=== PATIENT | female | born 1960 | race Caucasian/White ===

== ENCOUNTER 2020-01-15 15:57 | Inpatient (IN) | payer MEDICAID ==
[~2020-01-15] VITALS: Ht 167.6 cm; Wt 114.8 kg
[~2020-01-15 15:57] MED LIST: AUGMENTIN 500-1 EACH PO; BACLOFEN; CELEXA40 MG PO; CLONAZEPAM PO; DESYREL150 MG PO; FLEXERIL PO; GABAPENTIN PO; HYDROCODON-ACE1 EAC1 PO; IBUPROFEN 200200 M1 PO; LIDODERM 5%1 PATCH TOP; LIPITOR; MOBIC; NORCO 5-325 TA1 EACH PO; NORVASC10 MG PO; ROBAXIN 750 MG750 M1 PO; ULTRACET TABLE1 EACH PO
[2020-01-15 16:03] VITALS: BP 125/83
[2020-01-15 17:27] LABS: ABSOLUTE BASOPHILS 0.2 thou/uL (0.0-0.2); ABSOLUTE EOSINOPHILS 0.1 thou/uL (0.0-0.7); ABSOLUTE LYMPHOCYTES 3.1 thou/uL (0.8-5.3); ABSOLUTE MONOCYTES 0.7 thou/uL (0.0-1.2); ABSOLUTE NEUTROPHILS 9.9 thou/uL (1.6-8.1); BASOPHILS 1.3 %; EOSINOPHILS 0.7 %; HEMOGLOBIN 13.8 gm/dL (12.0-15.0); LYMPHOCYTES 22.1 %; MCHC 32.8 g/dL (28.0-37.0); MCV 85.3 fL (80.0-100.0); MONOCYTES 5.3 %; MPV 7.6 fl. (7.2-11.1); NUCLEATED RBCS 0 /100WBC; PLATELET COUNT* 273 thou/uL (150-400); POLYS 70.6 %; RBC 4.93 mil/uL (4.20-5.00); RDW-CV 14.2 % (10.5-14.5); WBC 14.1 thou/uL (4.0-11.0)
[2020-01-15 17:28] LABS: INFLUENZA A ANTIGEN Negative (Negative); INFLUENZA B ANTIGEN Negative (Negative)
[2020-01-15 17:36] LABS: CALCIUM 8.8 mg/dL (8.5-10.1); CREATININE 0.8 mg/dL (0.6-1.3); POTASSIUM 4.6 mmol/L (3.5-5.1)
[2020-01-15 17:40] LABS: ALBUMIN 3.4 g/dL (3.4-5.0); TOTAL BILIRUBIN 0.2 mg/dL (<0.1-1.0); TOTAL PROTEIN 8.3 g/dL (6.4-8.2)
[2020-01-15] MEDS ORDERED: PHENERGAN 25 MG25 M1 PO (17:52)
--- NOTE | 2020-01-15 19:01 | NUR ---
REPORT GIVEN TO ELICEO FERGUSON WHO IS TO ASSUME PT CARE AT THIS TIME.
[2020-01-15 20:18] LABS: BE -0.1 mmol/L (-2 to +3)
[2020-01-15 20:22] LABS: pH 7.141 (7.340-7.450)
[2020-01-15 20:26] LABS: ACETAMINOPHEN < 2 ug/mL (10-30); ALCOHOL < 10 mg/dL (<10); SALICYLATE < 2.8 mg/dL (2.8-20.0)
[2020-01-15 21:35] LABS: URINE BILIRUBIN NEGATIVE (Negative); URINE BLOOD NEGATIVE (Negative); URINE CLARITY CLEAR; URINE COLOR YELLOW; URINE GLUCOSE-RANDOM NEGATIVE (Negative); URINE KETONES NEGATIVE (Negative); URINE LEUKOCYTES-REFLEX NEGATIVE (Negative); URINE NITRITE-REFLEX NEGATIVE (Negative); URINE PROTEIN TRACE (Negative); URINE SPECIFIC GRAVITY >= 1.030 (1.005-1.030); URINE UROBILINOGEN 0.2 E.U./dl (0.2-1.0)
[2020-01-15 22:30] VITALS: BP 142/66
--- NOTE | 2020-01-15 22:30 | NUR ---
RECEIVED REPORT FROM ER AND ADMITTED TO ROOM 200. PT LETHARGIC BUT ABLE TO WAKE ENOUGH TO MOVE ONTO THE BED. BIPAP MACHINE ON. TELEMETRY APPLIED SHOWING SR. PT TOO LETHARGIC TO ANSWER ADMISSION QUESTIONS OR COOPERATE. WILL CONT TO MONITOR AND ASSIST NEEDED.
[2020-01-15 22:37] VITALS: BP 175/78
[2020-01-16 02:24] LABS: AMP/METHAMP POSITIVE (Negative); BARBITURATES Negative (Negative); BENZODIAZEPINES POSITIVE (Negative); COCAINE Negative (Negative); METHADONE Negative (Negative); OPIATES Negative (Negative); PCP Negative (Negative); THC Negative (Negative)
--- NOTE | 2020-01-16 02:27 | NUR ---
PT MORE AWAKE AND AGITATED. FREQ REMOVING CPAP MASK DEMANDING A DRINK. REFUSING AM LAB TO BE DRAWN UNTIL SHE GETS A DRINK. ATTEMPTED TO EDUCATE REASON FOR BIPAP BUT BECOME COMBATIVE.
[2020-01-16 03:56] VITALS: BP 134/66
--- NOTE | 2020-01-16 06:37 | NUR ---
SLEEPING BUT WAKING UP FREQ YELLING OUT, VERY AGITATED. WANTING BIPAP OFF AND GO HOME. LEFT MESSAGES WITH DAUGHTER TO EXPLAIN CONDITION BUT NO CALL BACK. ALLOWED PT TO HAVE SIPS OF WATER OCC. DIAPHORETIC. TELEMETRY CONT TO SHOW SR. NOTIFIED AND ORDER RECEIVED TO ASSIST WITH AGITIATION. CHARLES PATENT. HOURLY ROUNDING OBSERVED.
--- NOTE | 2020-01-16 07:10 | NUR ---
CHANGE OF SHIFT, BEDSIDE REPORT GIVEN PATIENT SEEN AT BEDSIDE, IN BED RESTING ASSUMED PATIENT CARE
[2020-01-16 08:00] VITALS: BP 134/61
[2020-01-16 09:35] LABS: BE 1.5 mmol/L (-2 to +3)
[2020-01-16 09:40] LABS: pH 7.292 (7.340-7.450)
[2020-01-16 09:41] LABS: PCO2 62.7 mmHg (35.0-45.0)
--- NOTE | 2020-01-16 10:32 | EKG ---
[place] [address] ELECTROCARDIOGRAM REPORT Name: SUSAN BRIONES Room: [address] ADM IN .R.#: [id number] Admission: 01/15/20 Attend Phys: Jeb Lopez Discharge: Date of : 62 Date of Service: 01/15/202026 Report #: [id number] THIS REPORT FOR: //name// [facility] ED Test Date: 2020-01-15 Test Time: 20:27:27 Pat Name: SUSAN BRIONES Department: Room: [facility] [place] Gender: F Director Of Revenue: : 1960 Requested By: Carrie De Souza Order Number: [id number] MD: Stephan Navarrete Measurements Intervals [place] Rate: 92 P: 72 [place]: 138 QRS: 63 QRSD: 90 T: 27 QT: 339 QTc: 420 Interpretive Statements Sinus rhythm Low voltage, precordial leads No previous ECG available for comparison Electronically Signed On 01-16-2020 10:31:21 MANUFACTURING PLANNER by Stephan Navarrete [email or web address] <ELECTRONICALLY SIGNED> By: Stephan Navarrete MD, [facility] 01/16/20 1031 26 26 Stephan Navarrete MD, FAC /EPI
[2020-01-16 12:00] VITALS: BP 140/35
--- NOTE | 2020-01-16 15:09 | NUR ---
Pt sound asleep on 6L o2, CM to f/u later
[2020-01-16 16:00] VITALS: BP 135/72
[2020-01-16 20:00] VITALS: BP 135/55
[2020-01-17 00:01] VITALS: BP 146/63
--- NOTE | 2020-01-17 03:46 | NUR ---
ASSUMED CARE OF PATIENT AT 1900. VSS, AFEBRILE. REFUSES BIPAP MOST OF SHIFT, DID TOLERATE FOR 2.5 HOURS. CALM AND COOPERATIVE WITH THIS RN. 2 IV'S PLACED. CRITICAL LABS RESULTED, DR DEJESUS IN HOUSE, NOTIFIED. ORDERS RECIEVED. RESTING AT THIS TIME.
[2020-01-17 04:34] LABS: ABSOLUTE LYMPHOCYTES 1.9 thou/uL (0.8-5.3); ABSOLUTE MONOCYTES 0.8 thou/uL (0.0-1.2); ABSOLUTE NEUTROPHILS 11.5 thou/uL (1.6-8.1); BASOPHILS 0.3 %; HEMATOCRIT 38.4 % (37.0-47.0); HEMOGLOBIN 12.5 gm/dL (12.0-15.0); LYMPHOCYTES 13.2 %; MCH 27.9 pg (26.0-34.0); MCHC 32.6 g/dL (28.0-37.0); MCV 85.6 fL (80.0-100.0); MONOCYTES 5.6 %; MPV 8.1 fl. (7.2-11.1); NUCLEATED RBCS 0 /100WBC; PLATELET COUNT* 304 thou/uL (150-400); POLYS 80.9 %; RBC 4.49 mil/uL (4.20-5.00); WBC 14.3 thou/uL (4.0-11.0)
[2020-01-17 04:36] VITALS: BP 147/74
[2020-01-17 04:53] LABS: CALCIUM 8.5 mg/dL (8.5-10.1); CREATININE 0.8 mg/dL (0.6-1.3); POTASSIUM 4.4 mmol/L (3.5-5.1)
[2020-01-17 05:43] LABS: BE 6.7 mmol/L (-2 to +3); PO2 92.7 mmHg (75.0-100.0); pH 7.315 (7.340-7.450)
[2020-01-17 05:46] LABS: PCO2 70.8 mmHg (35.0-45.0)
[2020-01-17 08:45] VITALS: BP 142/57
--- NOTE | 2020-01-17 09:38 | NUR ---
Out of room at CXR, will f/u later
--- NOTE | 2020-01-17 10:00 | NUR ---
ASSUMED CARE AFTER REPORT APPROX 0730. SLEEPING ON FIRST ENCOUNTER BUT ANSWERS TO NAME. UPON ASSESSMENT, OX4, FLAT AFFECT, ABLE TO EXPRESS NEEDS. ASSESSMENT COMPLETE, DOCUMENTED. VS OBTAINED, DOCUMENTED. PHILOSOPHY PROFESSOR IN PLACE, SR. DR. PACHECO TO BEDSIDE FOR ASSESSMENT OF PATIENT. DISCUSSED THE USE OF BIPAP. PATIENT STATES "IT MAKES ME FEEL SO UNCOMFORTABLE." EDUCATION GIVEN R/T BENEFITS OF BIPAP. PATIENT AGREES TO WEAR IT ONE HOUR ON AND ONE HOUR OFF. PATIENT STATES " LONG THEY DON'T FORCE ME TO WEAR IT." CALL LIGHT IN REACH. HOURLY ROUNDING FOR SAFETY/PATIENT NEEDS.
--- NOTE | 2020-01-17 11:40 | NUR ---
Pt is A&O. Resides at home with dtr, dtr in room at bedside. Pt is independent. Uses a walker for mobility. Pt wears home o2 continuous at 3L, provided through [employer]. No hx of HH or SNF. Goal is home at dc. Following.
[2020-01-17 12:00] VITALS: BP 159/78
[2020-01-17 16:00] VITALS: BP 145/67
--- NOTE | 2020-01-17 19:02 | NUR ---
PATIENT RESTING WITH HFC 6L, REFUSED TO RESUME BIPAP USE AT AGREED UPON TIME. HAS USED BIPAP 5 OUT OF 12 HOURS. TAKES IT OFF ON OWN AND REAPPLIES O2 AT WILL. LONGEST PERIOD OF USE TODAY WAS APPROX 2.5 HOURS. PATIENT STATES "I JUST FEEL SO TIRED." SHE ATE APPROX 10% OF EACH MEAL. PATIENT STATES "I GUESS I DON'T HAVE ANY APPETITE." GOOD URINE OUTPUT, NO BM TODAY.
[2020-01-17 19:40] VITALS: BP 147/68
[2020-01-18] VITALS: BP 140/53
[2020-01-18 04:00] VITALS: BP 154/76
--- NOTE | 2020-01-18 05:00 | NUR ---
PATIENT PARTIALLY PROGRESSING TOWARDS GOALS: PATIENT HAS WORN BIPAP ON AND OFF THIS SHIFT. PATIENT ENCOURAGED TO WEAR MUCH TOLERATED. PATIENT DENIES PAIN AND DISCOMFORT. CALL LIGHT WITHIN REACH
[2020-01-18 05:05] LABS: ABSOLUTE LYMPHOCYTES 1.8 thou/uL (0.8-5.3); ABSOLUTE MONOCYTES 0.6 thou/uL (0.0-1.2); ABSOLUTE NEUTROPHILS 10.7 thou/uL (1.6-8.1); BASOPHILS 0.3 %; HEMATOCRIT 38.6 % (37.0-47.0); HEMOGLOBIN 12.6 gm/dL (12.0-15.0); LYMPHOCYTES 13.7 %; MCH 27.8 pg (26.0-34.0); MCHC 32.6 g/dL (28.0-37.0); MCV 85.3 fL (80.0-100.0); MONOCYTES 4.5 %; MPV 8.1 fl. (7.2-11.1); NUCLEATED RBCS 0 /100WBC; PLATELET COUNT* 267 thou/uL (150-400); POLYS 81.5 %; RBC 4.52 mil/uL (4.20-5.00); RDW-CV 14.3 % (10.5-14.5); WBC 13.1 thou/uL (4.0-11.0)
[2020-01-18 05:09] LABS: ALBUMIN 2.9 g/dL (3.4-5.0); CALCIUM 8.4 mg/dL (8.5-10.1); CREATININE 0.9 mg/dL (0.6-1.3); POTASSIUM 4.4 mmol/L (3.5-5.1); TOTAL BILIRUBIN 0.2 mg/dL (<0.1-1.0); TOTAL PROTEIN 7.2 g/dL (6.4-8.2)
[2020-01-18 05:47] LABS: BE 4.6 mmol/L (-2 to +3); PO2 82.6 mmHg (75.0-100.0); pH 7.344 (7.340-7.450)
[2020-01-18 05:51] LABS: PCO2 59.7 mmHg (35.0-45.0)
--- NOTE | 2020-01-18 07:34 | CON ---
[address] [address] CONSULTATION Name: SUSAN BRIONES Room: [address] ADM IN M.R.#: [id number] Admission: 01/15/20 Attend Phys: Roberta Maddox Discharge: Date of : 62 Report #: [id number] THIS REPORT FOR: //name// cc: Deshawn Carter Ahmad W. DO ~ THIS REPORT FOR: //name// CC: Deshawn Lopez DATE OF SERVICE: 01/17/2020 INFECTIOUS DISEASE CONSULTATION ATTENDING PHYSICIAN: Jeb Lopez DO. REASON FOR EVALUATION: Gram-positive cocci, positive blood cultures in the setting of respiratory failure with pneumonitis. HISTORY OF PRESENT ILLNESS: Chart reviewed, patient examined. This is a 59-year-old with underlying COPD, was admitted through the Emergency Room on 01/14 with roughly 3-day history of headache, developed some nausea, emesis as per the evaluation, was noted to be hypoxemic with acidemia and marked hypercarbia. Influenza antigen was negative. Initial chest x-ray was fairly unrevealing; however, this has progressed to some degree. Lactic acid was 1.6. ProBNP was 573. She had a difficult time with hypercarbia, is now intermittently on BiPAP, had developed really no fevers. Blood cultures at the time of admission, now 1 out of 2 gram-positive cocci, has been empirically placed on antimicrobials including vancomycin as well as piperacillin and tazobactam. She notes she has really not improved since admission. She is generally lucid, moderate distress. Denies significant gastrointestinal complaints at this point. ALLERGIES: LISTED TO FENTANYL AND LATEX. MEDICATIONS: Include acetaminophen, vancomycin, trazodone, ipratropium, albuterol inhaler, hydrocodone, cyclobenzaprine, citalopram, methylprednisolone, lorazepam as needed, Zosyn, ondansetron as needed. PAST MEDICAL HISTORY: Degenerative disk disease, osteoporosis, COPD, 2 ectopic tubal pregnancies, back and neck pain. SOCIAL HISTORY: Smokes cigarettes. No ethanol. Positive urine drug screen for amphetamine, methamphetamine and benzodiazepines. FAMILY HISTORY: [place] [address] CONSULTATION Name: SUSAN BRIONES Room: [address] IN [facility].#: [id number] Admission: 01/15/20 Attend Phys: Roberta Maddox Discharge: Date of : 62 Report #: [id number] REVIEW OF SYSTEMS: As above. PHYSICAL EXAMINATION: GENERAL: She appears ill, not overtly toxic. She is in moderate respiratory distress. VITAL SIGNS: Temperature 97.7, pulse 82, respirations 22, blood pressure 159/78. SKIN: Warm, dry, no rashes. HEENT: Normocephalic. Extraocular muscles intact. NECK: Supple. LUNGS: Scattered coarse breath sounds. HEART: Regular. I do not appreciate murmur. ABDOMEN: Mildly distended, soft, nontender. There are no peritoneal signs. GENITOURINARY: Deferred. RECTAL: Deferred. LABORATORY DATA: Initial CBC: White count of 14.1, H 13.8 and 42.0, platelets 273. Influenza antigen was negative. Electrolytes: Sodium 138, potassium 4.6, chloride 100, bicarbonate is 34, anion gap of 4, BUN and creatinine 11 and 0.8, albumin of 3.4, total protein 8.3. LFTs unremarkable. ABGs: Initially, pH 7.141, pCO2 of 96.0, pO2 of 74.0 on 4 liters. Chest x-ray was otherwise unremarkable initially; repeat showed changes, bilateral interstitial markings, question of vascular congestion and pulmonary edema. Blood cultures, 1 out of 2 with gram-positive cocci. ASSESSMENT: Pneumonitis, complicated by respiratory failure, positive blood culture as well. It is difficult to ascertain if indeed this represents a true positive. Certainly, we cannot exclude a Staph or strep etiology. We will continue current antimicrobial approach with empiric combination of vancomycin, piperacillin and tazobactam. She is somewhat tenuous. We will have to monitor expectantly. We are going to wean off support as allowed. <ELECTRONICALLY SIGNED> By: Manav Meadows MD 01/18/20 0734 1542 [id number] Meadows MD /nt
[2020-01-18 08:00] VITALS: BP 128/64
--- NOTE | 2020-01-18 11:03 | NUR ---
ASSUMED CARE OF PT AT 0730. RESTING LYING IN BED. PT WORE BIPAP FOR AN HOUR THIS AM AND ON 6L NC DURING BREAKFAST. PT ENCOURAGED TO USE BIPAP THROUGHOUT SHIFT. A&0X4, COMPLAINS OF PAIN TO BACK. TREATED WITH PRN TYLENOL AND FLEXERIL WITH PARTIAL RELIEF. TRACING SR ON THE INDUSTRIAL MAINTENANCE TECHNICIAN. 02 SAT 96% ON BIPAP. CHARLES TO DEPENDENT DRAINAGE. PT UP WITH MAX ASSIST- BEDREST MAINTAINED. IVF. PULM AND ID CONSULT IN PLACE. PT GOAL FOR TODAY IS COMPLETE ECHO, PAIN MGMT AND COMPLIANCE WITH BIPAP. AM ASSESSMENT CHARTED. MEDICATIONS PER JAN. PT REPOSITIONS SELF WITH REMINDERS. HOURLY ROUNDING OBSERVED. BED IN LOW POSITION. CALL LIGHT WITHIN REACH. WILL CONTINUE PLAN OF CARE.
[2020-01-18 12:00] VITALS: BP 127/53
--- NOTE | 2020-01-18 14:19 | 2DMMODE ---
[place] [address] 2 D/M-MODE ECHOCARDIOGRAM Name: SUSAN BRIONES Room: [address] IN [facility].#: [id number] Admission: 01/15/20 Attend Phys: Jeb Lopez Discharge: Date of : 62 Date of Service: 01/18/20 1406 Report #: [id number] THIS REPORT FOR: cc: Deshawn Carter Ahmad W. DO Blick,Stephan Shaw MD [facility] ~ APPROVED REPORT Study performed: 01/18/2020 09:42:27 EXAM: Comprehensive 2D, Doppler, and color-flow Echocardiogram Patient Location: In-Patient Room #: 200 Status: routine BSA: 2.31 HR: 71 bpm BP: 128/64 mmHg Rhythm: NSR Other Information Study Quality: Good Indications Sepsis Dyspnea 2D Dimensions IVSd: 11.90 (7-11mm) LVOT Diam: 20.24 (18-24mm) LVDd: 47.27 mm PWd: 10.61 (7-11mm) LVDs: 33.08 (25-40mm) Aortic Root: 29.51 mm Volumes Left Atrial Volume (Systole) LA ESV Index: 26.40 mL/m2 Aortic Valve AoV Peak Yann.: 2.05 m/s AO Peak Gr.: 16.86 mmHg LVOT Max P.86 mmHg AO Mean Gr.: 8.18 mmHg LVOT Mean P.15 mmHg LVOT Max V: 1.65 m/s AO V2 VTI: 37.25 cm LVOT Mean V: 1.03 m/s JHON (VTI): 2.87 cm2 LVOT V1 VTI: 33.16 [place] [address] 2 D/M-MODE ECHOCARDIOGRAM Name: SUSAN BRIONES Room: [address] IN M.R.#: [id number] Admission: 01/15/20 Attend Phys: Jeb Lopez Discharge: Date of : 62 Date of Service: 01/18/20 1406 Report #: [id number] Mitral Valve E/A Ratio: 1.12 MV Decel. Time: 258.99 ms MV E Max Yann.: 1.13 m/s MV PHT: 75.11 ms MVA (PHT): 2.93 cm2 TDI E/Lateral E': 9.42 E/Medial E': 8.07 Medial E' Yann.: 0.14 m/s Lateral E' Yann.: 0.12 m/s Pulmonary Valve PV Peak Aynn.: 1.37 m/s PV Peak Gr.: 7.50 mmHg Left Ventricle The left ventricle is normal size. There is normal LV segmental wall motion. There is normal left ventricular wall thickness. Left ventricular systolic function is normal. The left ventricular ejection fraction is within the normal range. LVEF is 55-60%. The left ventricular diastolic function is normal. Right Ventricle The right ventricle is normal size. The right ventricular systolic function is normal. Atria The left atrium size is normal. The right atrium size is normal. Aortic Valve Mild aortic valve sclerosis. No aortic regurgitation is present. There is no aortic valvular stenosis. Mitral Valve The mitral valve is normal in structure. Trace mitral regurgitation. No evidence of mitral valve stenosis. Tricuspid Valve The tricuspid valve is normal in structure. Unable to assess PA pressure. Trace tricuspid regurgitation. Pulmonic Valve The pulmonary valve is normal in structure. There is no pulmonic [place] [address] 2 D/M-MODE ECHOCARDIOGRAM Name: SUSAN BRIONES Room: [address]#: [id number] Admission: 01/15/20 Attend Phys: Jeb Lopez Discharge: Date of : 62 Date of Service: 01/18/20 1406 Report #: [id number] Great Vessels The aortic root is normal in size. IVC is normal in size and collapses >50% with inspiration. Pericardium There is no pericardial effusion. <Conclusion> LVEF is 55-60%. Mild aortic valve sclerosis. <ELECTRONICALLY SIGNED> By: Stephan Navarrete MD, [facility] 01/18/20 1406 140 140 Stephan Navarrete MD, [facility] /INF
[2020-01-18 16:00] VITALS: BP 172/81
--- NOTE | 2020-01-18 17:01 | NUR ---
NO ACUTE CHANGES THROUGHOUT SHIFT. REFER TO CHARTING. PT HAD ECHO TODAY-REFER TO RESULTS. PT DROWSY THROUGHOUT SHIFT. SCHEDULED FLEXERIL HELD THIS AFTERNOON. PT DAUGHTER AT BEDSIDE THROUGHOUT SHIFT AND UPDATED ON CURRENT PLAN OF CARE. PT CONTINUES TO BE ON 6L NC SAT UPPER 90'S. SLOWLY PROGRESSING TOWARDS GOALS. CONTINUES TO TRACE SR ON THE NURSING UNIT COORDINATOR. IVF. CHARLES TO DEPENDENT DRAINAGE. MEDICATIONS PER JAN. PT REPOSITIONS SELF WITH REMINDERS. HOURLY ROUNDING OBSERVED. BED IN LOW POSITION. CALL LIGHT WITHIN REACH. WILL CONTINUE PLAN OF CARE.
[2020-01-18 19:40] VITALS: BP 166/81
[2020-01-19 00:36] VITALS: BP 151/74
[2020-01-19 04:32] VITALS: BP 125/53
--- NOTE | 2020-01-19 05:06 | NUR ---
PATIENT PARTIALLY PROGRESSING TOWARDS GOALS: PATIENT CONTINUES TO REFUSE THE BIPAP AT TIMES. REQUIRES ENCOURAGEMENT AND REMINDERS FREQUENTLY. CHARLES CATHETER REMAINS IN PLACE, VERY ADEQUATE OUTPUT. PATIENT HAS VERY POOR APPETITE, ENCOURAGED INTAKE PRIOR TO HS. PATIENT ATE CHOCOLATE ICE CREAM AND A FEW BITES OF LEFTOVER DINNER. CALL LIGHT WITHIN REACH
[2020-01-19 05:24] LABS: ABSOLUTE BASOPHILS 0.1 thou/uL (0.0-0.2); ABSOLUTE LYMPHOCYTES 1.9 thou/uL (0.8-5.3); ABSOLUTE MONOCYTES 0.6 thou/uL (0.0-1.2); ABSOLUTE NEUTROPHILS 9.5 thou/uL (1.6-8.1); BASOPHILS 0.4 %; HEMATOCRIT 39.7 % (37.0-47.0); HEMOGLOBIN 12.8 gm/dL (12.0-15.0); LYMPHOCYTES 15.7 %; MCH 27.7 pg (26.0-34.0); MCHC 32.3 g/dL (28.0-37.0); MCV 85.8 fL (80.0-100.0); MONOCYTES 5.1 %; MPV 8.2 fl. (7.2-11.1); NUCLEATED RBCS 0 /100WBC; PLATELET COUNT* 262 thou/uL (150-400); POLYS 78.8 %; RBC 4.63 mil/uL (4.20-5.00); RDW-CV 14.2 % (10.5-14.5); WBC 12.1 thou/uL (4.0-11.0)
[2020-01-19 05:25] LABS: ALBUMIN 2.9 g/dL (3.4-5.0); CALCIUM 8.4 mg/dL (8.5-10.1); CREATININE 0.6 mg/dL (0.6-1.3); POTASSIUM 4.6 mmol/L (3.5-5.1); TOTAL BILIRUBIN 0.2 mg/dL (<0.1-1.0); TOTAL PROTEIN 7.1 g/dL (6.4-8.2)
[2020-01-19 07:53] VITALS: BP 137/65
--- NOTE | 2020-01-19 09:05 | NUR ---
ASSUMED CARE OF PT AT 0730. PT RESTING IN BED. DAUGHTER AT BEDSIDE. PT WILLING TO WEAR BIPAP THIS AM X 1 HOUR UNTIL BREAKFAST TRAYS CAME. PT APPETITE FAIR THIS AM. COMPLAINED OF PAIN TO BACK AND HEAD-TREATED WITH PRN TYLENOL WITH PARTIAL RELIEF. TRACING SR ON THE CABLE ASSEMBLER AND SWAGER. PT ON 6L NC SAT UPPER 90'S WHEN NOT ON BIPAP. CHARLES TO DEPENDENT DRAINAGE. PT UP WITH MAX ASSIST- BEDREST MAINTAINED. PT REPOSITIONS SELF WITH REMINDERS. IVF. PULM AND ID CONSULT IN PLACE. PT GOAL FOR TODAY IS COMPLIANCE WITH BIPAP AND PAIN MGMT. AM ASSESSMENT CHARTED. MEDICATIONS PER MAR. HOURLY ROUNDING OBSERVED. BED IN LOW POSITION. CALL LIGHT WITHIN REACH. WILL CONTINUE PLAN OF CARE.
[2020-01-19 12:00] VITALS: BP 127/53
[2020-01-19 16:00] VITALS: BP 144/74
--- NOTE | 2020-01-19 18:12 | NUR ---
NO ACUTE CHANGES THROUGHOUT SHIFT. REFER TO CHARTING. PT WORE BIPAP OFF AND ON THROUGHOUT SHIFT. APPETITE BETTER FOR LUNCH. PT ATE 50%. FAMILY BROUGHT IN OUTSIDE FOOD FOR BREAKFAST AND DINNER- PT ATE APPROXIMATELY 20%. PT DAUGHTER AT BEDSIDE THROUGHOUT SHIFT AND UPDATED ON CURRENT PLAN OF CARE AND SPOKE WITH DR PRITCHARD OVER THE PHONE. CONTINUES TO TRACE SR ON THE MOTION STUDY ANALYST. CHARLES TO DEPENDENT DRAINAGE. MEDICATIONS PER JAN. PT REPOSITIONS SELF. HOURLY ROUNDING OBSERVED. BED IN LOW POSITION. CALL LIGHT WITHIN REACH. WILL CONTINUE PLAN OF CARE.
[2020-01-19 19:40] VITALS: BP 151/56
[2020-01-20 00:24] VITALS: BP 141/58
[2020-01-20 04:15] VITALS: BP 162/78
--- NOTE | 2020-01-20 06:07 | NUR ---
PATIENT PARTIALLY PROGRESSING TOWARDS GOALS: PATIENT WORE BIPAP FOR A FEW HOURS THIS SHIFT BUT THEN REQUESTED TO WEAR NASAL CANNULA. PATIENT ON 5L. O2 SATURATION MAINTAINED >92%. PATIENT CONTINUES TO HAVE POOR APPETITE, ENCOURAGED INTAKE. CALL LIGHT WITHIN REACH
[2020-01-20 08:00] VITALS: BP 152/68
[2020-01-20 12:00] VITALS: BP 162/60
--- NOTE | 2020-01-20 14:12 | NUR ---
ASSUMED CARE OF PT AT 0730. PT RESTING IN BED. DAUGHTER AT BEDSIDE AND UPDATED ON CURRENT PLAN OF CARE. PT COMPLAINS OF PAIN TO HEAD AND BACK-TREATED WITH PRN TYLENOL WITH PARTIAL RELIEF. TRACING SR/ST ON THE SINTER FEEDER. ON 5L NC SAT UPPER 90'S. CHARLES TO DEPENDENT DRAINAGE. IVF. PT GOAL FOR TODAY IS PAIN MGMT, INCREASE ACTIVITY AND TITRATE OXYGEN. AM ASSESSMENT CHARTED. MEDICATIONS PER MAR. PT REPOSITIONS SELF. HOURLY ROUNDING OBSERVED. BED IN LOW POSITION. CALL LIGHT WITHIN REACH. WILL CONTINUE PLAN OF CARE.
--- NOTE | 2020-01-20 17:42 | NUR ---
NO ACUTE CHANGES THROUGHOUT SHIFT. REFER TO CHARTING. PT DENIES ANY PAIN OR SHORTNESS OF BREATH THIS AFTERNOON. DAUGHTER AT BEDSIDE. PROGRESSING TOWARDS GOALS. COMPLIANCE WITH BIPAP THROUGHOUT SHIFT. CONTINUES TO BE ON 5L NC SAT UPPER 90'S. MEDICATIONS PER JAN. PT REPOSITIONS SELF. HOURLY ROUNDING OBSERVED. BED IN LOW POSITION. CALL LIGHT WITHIN REACH. WILL CONTINUE PLAN OF CARE.
[2020-01-20 20:10] VITALS: BP 153/76
[2020-01-21 00:11] VITALS: BP 146/58
[2020-01-21 04:00] VITALS: BP 143/60
--- NOTE | 2020-01-21 04:43 | NUR ---
PATIENT CONTINUES TO BE RELUCTANT TO WEAR BIPAP DESPITE ENCOURAGEMENT AND REINFORCEMENT. PATIENT WORE IT FOR A FEW HOURS. CALL LIGHT WITHIN REACH
[2020-01-21 08:00] VITALS: BP 122/52
[2020-01-21 09:02] LABS: ABSOLUTE BASOPHILS 0.2 thou/uL (0.0-0.2); ABSOLUTE LYMPHOCYTES 3.3 thou/uL (0.8-5.3); ABSOLUTE MONOCYTES 0.6 thou/uL (0.0-1.2); ABSOLUTE NEUTROPHILS 9.8 thou/uL (1.6-8.1); BASOPHILS 1.1 %; EOSINOPHILS 0.1 %; HEMATOCRIT 42.4 % (37.0-47.0); HEMOGLOBIN 13.8 gm/dL (12.0-15.0); LYMPHOCYTES 23.7 %; MCH 27.5 pg (26.0-34.0); MCHC 32.6 g/dL (28.0-37.0); MCV 84.4 fL (80.0-100.0); MONOCYTES 4.6 %; MPV 7.3 fl. (7.2-11.1); NUCLEATED RBCS 0 /100WBC; PLATELET COUNT* 298 thou/uL (150-400); POLYS 70.5 %; RBC 5.03 mil/uL (4.20-5.00); RDW-CV 13.9 % (10.5-14.5); WBC 13.9 thou/uL (4.0-11.0)
[2020-01-21 09:33] LABS: ALBUMIN 2.8 g/dL (3.4-5.0); CALCIUM 8.4 mg/dL (8.5-10.1); CREATININE 0.7 mg/dL (0.6-1.3); POTASSIUM 3.7 mmol/L (3.5-5.1); TOTAL BILIRUBIN 0.2 mg/dL (<0.1-1.0); TOTAL PROTEIN 6.9 g/dL (6.4-8.2)
[2020-01-21 09:58] LABS: BE 8.8 mmol/L (-2 to +3); PO2 70.4 mmHg (75.0-100.0); pH 7.325 (7.340-7.450)
[2020-01-21 10:01] LABS: PCO2 74.4 mmHg (35.0-45.0)
--- NOTE | 2020-01-21 10:53 | NUR ---
Spoke with Dr, anticipate dc within the next 1-2 days. Following.
[2020-01-21 12:00] VITALS: BP 117/52
[2020-01-21 16:00] VITALS: BP 183/89
[2020-01-21 20:00] VITALS: BP 129/61
--- NOTE | 2020-01-21 20:42 | NUR ---
RECEIVED REPORT FROM SILKE FENTON. ASSUMED CARE OF PT AROUND 0730. PT A&O X4, BUT DROWSY. ON 5L PER NC DURING ASSESSMENT THIS AM, O2 SAT >91%. MANUFACTURING COST ESTIMATOR IN PLACE TRACING SR. AM ASSESSMENT AND VITALS COMPLETED CHARTED. MEDS PER EMAR. IV INTACT. FLUIDS INFUSING. ABGS DRAWN LATE THIS MORNING - CO2 CRITICAL. DR PRITCHARD NOTIFIED AT THE DESK, ORDER RECEIVED FOR PT TO GO BACK ON BIPAP IF SHE WOULD. PT DID COOPERATE WITH BIPAP FOR ABOUT 3 HOURS. ENCOURAGED PT TO WEAR BIPAP THIS AFTERNOON BUT PT REFUSED. POOR APPETITE THIS SHIFT DESPITE ENCOURAGEMENT TO EAT. PT WAS ABLE TO SHOWER THIS AFTERNOON. DAUGHTER VISITED THIS AM AND THIS EVENING. PT DENIED PAIN AND SHORTNESS OF AIR THIS SHIFT. STATES SHE IS READY TO GO HOME. CHARLES REMAINS IN PLACE TO DEPENDANT DRAINAGE. PT CURRENTLY RESTING IN BED. CALL LIGHT IS WITHIN REACH. HOURLY ROUNDING PERFORMED. CALL LIGHT IS WITHIN REACH.
[2020-01-22 00:23] VITALS: BP 113/51
[2020-01-22 04:00] VITALS: BP 117/46
[2020-01-22 04:36] LABS: ABSOLUTE BASOPHILS 0.2 thou/uL (0.0-0.2); ABSOLUTE LYMPHOCYTES 2.1 thou/uL (0.8-5.3); ABSOLUTE MONOCYTES 0.9 thou/uL (0.0-1.2); ABSOLUTE NEUTROPHILS 11.5 thou/uL (1.6-8.1); BASOPHILS 1.1 %; HEMATOCRIT 43.4 % (37.0-47.0); HEMOGLOBIN 14.3 gm/dL (12.0-15.0); LYMPHOCYTES 14.2 %; MCHC 32.9 g/dL (28.0-37.0); MONOCYTES 6.4 %; MPV 7.6 fl. (7.2-11.1); NUCLEATED RBCS 0 /100WBC; PLATELET COUNT* 329 thou/uL (150-400); POLYS 78.3 %; RBC 5.11 mil/uL (4.20-5.00); RDW-CV 14.3 % (10.5-14.5); WBC 14.7 thou/uL (4.0-11.0)
[2020-01-22 04:42] LABS: ANION GAP < 0 mmol/L (7-16); BUN 19 mg/dL (7-18); CALCIUM 8.8 mg/dL (8.5-10.1); CHLORIDE 103 mmol/L (98-107); CO2 41 mmol/L (21-32); CREATININE 0.7 mg/dL (0.6-1.3); GLUCOSE 104 mg/dL (70-99); POTASSIUM 4.3 mmol/L (3.5-5.1); SODIUM 143 mmol/L (136-145)
[2020-01-22 05:58] LABS: BE 11.4 mmol/L (-2 to +3); PO2 94.6 mmHg (75.0-100.0); pH 7.341 (7.340-7.450)
[2020-01-22 06:03] LABS: PCO2 77.3 mmHg (35.0-45.0)
--- NOTE | 2020-01-22 07:05 | NUR ---
CHANGE OF SHIFT, BEDSIDE REPORT GIVEN PATIENT SEEN AT BEDSIDE, IN BED ASLEEP WITH BIPAP ON ASSUMED PATIENT CARE
[2020-01-22 07:30] VITALS: BP 127/72
--- NOTE | 2020-01-22 07:45 | NUR ---
Shift uneventful. Pt compliant with BIPAP throughout night. Pt is aox4, running SR to S-tach on telemetry, respirations and even and unlabored.
[2020-01-22 08:00] VITALS: BP 139/58
[2020-01-22 12:00] VITALS: BP 147/65
[2020-01-22] MEDS ORDERED: LEVAQUIN 750 M750 MG PO (12:20)
[2020-01-22] MEDS ORDERED: PREDNISONE 5 MG5 M1 PO (12:23)
[2020-01-22 12:28] VITALS: BP 139/58
--- NOTE | 2020-01-22 12:45 | NUR ---
DISCHARGE TO HOME ALL DISCHARGE INSTRUCTIONS GIVEN, ACKNOWLEDGED, SIGNED PAERS GIVEN PATIENTS IV, HEART MONITOR REMOVED AND PERSONAL BELONGINGS RETURNED PATIENT HOME WITH OXYGEN USE ASSISTED OUT VIA WC IN GOOD CONDITITON TO WAITING CAR
--- NOTE | 2020-01-23 18:24 | CON ---
[address] [address] CONSULTATION Name: SUSAN BRIONES Room: [address] IN M.R.#: [id number] Admission: 01/15/20 Attend Phys: Roberta Maddox Discharge: 01/22/20 Date of : 62 Report #: [id number] THIS REPORT FOR: //name// cc: Deshawn Carter Ahmad W. DO ~ THIS REPORT FOR: //name// CC: Deshawn Lopez DATE OF SERVICE: 01/22/2020 I was asked to see this 59-year-old lady for hypercarbia. HISTORY OF PRESENT ILLNESS: She does have history of a 12-wqrj-ance smoking, quit smoking few months ago. She does use drugs at times. Her urine drug screen was positive for amphetamine and benzodiazepine during this admission. She was brought to the Emergency Room via EMS for headache. She also has had increased shortness of breath and cough. She started to feel better, but then started to have more cough with the sputum production. Her chest x-ray does show a new left lower lobe infiltrate. She is on chronic oxygen 2 liters per minute via nasal cannula. She states that she has snoring and excessive daytime sleepiness and had a sleep study at [facility] last month, which did not show sleep apnea. PAST MEDICAL HISTORY: Chronic respiratory failure, COPD, headache, chronic back pain, substance abuse. ALLERGIES: FENTANYL, LATEX. MEDICATIONS: Currently, she is on cefepime, vancomycin, DuoNeb, Celexa, trazodone, Solu-Medrol 62.5 mg b.i.d. SOCIAL HISTORY: History of 21-krld-wdds smoking. She does drugs at times. Her urine drug screen was positive for amphetamine. FAMILY HISTORY: Hypertension. REVIEW OF SYSTEMS: As mentioned as above, other systems otherwise negative. PHYSICAL EXAMINATION: GENERAL: This is an overweight lady. VITAL SIGNS: Her O2 saturation on 35%, FiO2 is 94%, respiratory rate 18, heart rate 78, blood pressure 117/46, temperature 36.9. HEENT: Normocephalic, atraumatic. Pupils equal, round, [place] [address] CONSULTATION Name: SUSAN BRIONES Room: [address]#: [id number] Admission: 01/15/20 Attend Phys: Roberta Maddox Discharge: 01/22/20 Date of : 62 Report #: [id number] has BiPAP mask on. NECK: There is no lymphadenopathy or thyromegaly. CARDIOVASCULAR: Regular rate and rhythm. PMI is nondisplaced. CHEST: Inspection is normal. LUNGS: There are bibasilar crackles, dullness at the left base. ABDOMEN: Soft. Bowel sounds are good. There is no mass. EXTREMITIES: There is no edema. LYMPHATICS: There is no lymphadenopathy. NEUROLOGIC: Alert. SKIN: Chronic changes. LABORATORY DATA: I reviewed the following lab data: Chest x-ray on admission did not show any infiltrate. Yesterday, chest x-ray did show a left lower lobe infiltrate/atelectasis/effusion. Urine drug screen positive for amphetamine and benzodiazepine. This morning, WBC 14.7, hemoglobin 14.3, platelets 329. ABG, yesterday pH 7.32, pCO2 of 74, pO2 of 70, on 5 liters of oxygen. Influenza A and B negative. Sodium 143, potassium 4.3, chloride 103, CO2 41, BUN 19, creatinine 0.7, glucose 104. BNP 835. Troponin less than 0.06. Lactic acid 0.9. IMPRESSION: 1. Acute on chronic hypoxemic hypercarbic respiratory failure secondary to acute exacerbation of chronic obstructive pulmonary disease, pneumonia, cannot rule out diastolic congestive heart failure. 2. Abnormal chest x-ray. 3. Acute exacerbation of chronic obstructive pulmonary disease. 4. Pneumonia. 5. Leukocytosis. 6. Substance abuse. 7. Obesity, snoring and excessive daytime sleepiness, probable obstructive sleep apnea-hypopnea syndrome. PLAN AND RECOMMENDATIONS: 1. Titrate FiO2 to keep O2 saturation 90%. 2. BiPAP p.r.n. during day and continuously at night. 3. She has chronic hypercarbic hypoxemic respiratory failure. Her hypercarbia is due to that suspect she has severe COPD and obstructive sleep apnea-hypopnea syndrome. 4. I have advised her to stop using any drugs including amphetamine. I have advised her to continue not smoking. 5. Continue Solu-Medrol. 6. Continue antibiotic. ID is on the case. 7. Continue bronchodilator. 8. Add inhaled corticosteroid. 9. I will do a CT of the chest to have a better look at left lower lobe infiltrate/atelectasis/[place] [address] CONSULTATION Name: SUSAN BRIONES Room: [address] IN M.R.#: [id number] Admission: 01/15/20 Attend Phys: Roberta Maddox Discharge: 01/22/20 Date of : 62 Report #: [id number] 10. Avoid oversedation. 11. Send the sputum for Gram stain and culture. 12. Lose weight. 13. She may require repeat sleep study. 14. The findings and recommendations were discussed with the patient and RN. Thank you very much for allowing me to participate in care of this very nice lady. <ELECTRONICALLY SIGNED> By: Nishant John MD 01/23/20 1824 0540 [id number] John MD /nt
== END 2020-01-22 12:45 | disposition home or self-care (01) | DRG 871 ==
LOC: M.ERS 15:57 → M.TBA-ER 20:57 → M.2W 20:57
PROVIDERS: Nurse Practitioner Family; ADMIT Internal Medicine
PROC: 5A09357 Assistance with Respiratory Ventilation, Less than 24 Consecutive Hours, Continuous Positive Airway Pressure (ICD-10-PCS; principal; 2020-01-15)
PROC: 5A09357 Assistance with Respiratory Ventilation, Less than 24 Consecutive Hours, Continuous Positive Airway Pressure (ICD-10-PCS; 2020-01-16)
PROC: 5A09357 Assistance with Respiratory Ventilation, Less than 24 Consecutive Hours, Continuous Positive Airway Pressure (ICD-10-PCS; 2020-01-17)
PROC: 5A09357 Assistance with Respiratory Ventilation, Less than 24 Consecutive Hours, Continuous Positive Airway Pressure (ICD-10-PCS; 2020-01-18)
PROC: 5A09357 Assistance with Respiratory Ventilation, Less than 24 Consecutive Hours, Continuous Positive Airway Pressure (ICD-10-PCS; 2020-01-19)
PROC: 5A09357 Assistance with Respiratory Ventilation, Less than 24 Consecutive Hours, Continuous Positive Airway Pressure (ICD-10-PCS; 2020-01-20)
PROC: 5A09357 Assistance with Respiratory Ventilation, Less than 24 Consecutive Hours, Continuous Positive Airway Pressure (ICD-10-PCS; 2020-01-21)
DX: A41.9 Sepsis, unspecified organism (principal); J18.9 Pneumonia, unspecified organism; J96.21 Acute and chronic respiratory failure with hypoxia; J96.22 Acute and chronic respiratory failure with hypercapnia; E43 Unspecified severe protein-calorie malnutrition; J44.0 Chronic obstructive pulmonary disease with (acute) lower respiratory infection; J44.1 Chronic obstructive pulmonary disease with (acute) exacerbation; I50.30 Unspecified diastolic (congestive) heart failure; G93.40 Encephalopathy, unspecified; Z68.41 Body mass index [BMI] 40.0-44.9, adult; M81.0 Age-related osteoporosis without current pathological fracture; F17.210 Nicotine dependence, cigarettes, uncomplicated; E66.9 Obesity, unspecified; G89.29 Other chronic pain; Z79.899 Other long term (current) drug therapy; Z88.8 Allergy status to other drugs, medicaments and biological substances; Z91.040 Latex allergy status; Z82.49 Family history of ischemic heart disease and other diseases of the circulatory system; Z99.81 Dependence on supplemental oxygen; Z83.6 Family history of other diseases of the respiratory system

== ENCOUNTER → 2020-03-17 | Outpatient (CLI) | payer MEDICAID ==
[~2020-03-17] MED LIST changes: +LEVAQUIN 750 M750 MG PO; +PHENERGAN 25 MG25 M1 PO; +PREDNISONE 5 MG5 M1 PO
== END ==
LOC: M.CT 03-14 11:00
DX: J44.1 Chronic obstructive pulmonary disease with (acute) exacerbation (principal); K80.80 Other cholelithiasis without obstruction; J98.4 Other disorders of lung